=== PATIENT | female | born 1995 | race Caucasian/White ===

== ENCOUNTER 2024-01-27 09:10 | Emergency (ER) | payer BC, SELFPAY ==
[2024-01-27] MEDS ORDERED: Ondansetron PF 4 MG/2 ML Vial ONE (09:51)
[2024-01-27] MEDS ORDERED: Morphine 4 MG/ML VIAL ONE (09:51)
[2024-01-27] MEDS ORDERED: Ampicillin/Sulbactam 3 GM VIAL ONE (10:50)
[2024-01-27] MEDS ORDERED: Sodium Chloride 0.9% 100 ML ONE (10:50)
== END 2024-01-27 13:19 | disposition short-term general hospital (02) ==
LOC: ERS 09:10
DX: S02.19XA Other fracture of base of skull, initial encounter for closed fracture (principal); S02.113A Unspecified occipital condyle fracture, initial encounter for closed fracture; S02.832A Fracture of medial orbital wall, left side, initial encounter for closed fracture; S32.401A Unspecified fracture of right acetabulum, initial encounter for closed fracture; S72.111A Displaced fracture of greater trochanter of right femur, initial encounter for closed fracture; S02.40EA Zygomatic fracture, right side, initial encounter for closed fracture; S02.40DA Maxillary fracture, left side, initial encounter for closed fracture; S02.40CA Maxillary fracture, right side, initial encounter for closed fracture; S82.251A Displaced comminuted fracture of shaft of right tibia, initial encounter for closed fracture; S82.451A Displaced comminuted fracture of shaft of right fibula, initial encounter for closed fracture; S92.331A Displaced fracture of third metatarsal bone, right foot, initial encounter for closed fracture; S92.321A Displaced fracture of second metatarsal bone, right foot, initial encounter for closed fracture; S02.609A Fracture of mandible, unspecified, initial encounter for closed fracture; V86.55XA Driver of 3- or 4- wheeled all-terrain vehicle (ATV) injured in nontraffic accident, initial encounter
CPT/HCPCS: 96374; 96375; G0390; J0295; J2270; J2405; J3490